=== PATIENT | male | born 1945 | race Caucasian/White ===

== ENCOUNTER 2016-11-26 15:56 | Emergency (ER) | payer OTHER, MEDICARE ==
[~2016-11-26] VITALS: Ht 175.3 cm; Wt 90.0 kg
[2016-11-26 15:57] VITALS: BP 180/90; PULSE 88; RESP 20; TEMP 99; O2SAT 97
--- NOTE | 2016-11-26 16:45 | PD ---
Physical Exam Time Seen by Provider: 16:39 Narrative 71yo male c/o CHANDLER and left elbow injury after falling from a [employer] truck today. Unknown if LOC. Negative vomiting. Positive neck pain and back pain. Takes ASA. Denies anticoagulants. VSS. Patient seen in triage. Awaiting bed placement. Data Data Last Documented VS Vital Signs Date Time Temp Pulse Resp B/P Pulse Ox O2 Delivery O2 Flow Rate FiO2 11/26/16 15:57 99.0 88 20 180/90 97 Room Air [facility] Supervised Visit with BASIM: Roxie Aranda Nov 26, 2016 16:45
[2016-11-26] MEDS ORDERED: IBUPROFEN 600 MG TAB PO ONE (18:00)
--- NOTE | 2016-11-26 18:02 | PD ---
HPI Chief Complaint: Fall Time Seen by Provider: 17:27 Travel History International Travel<30 days: No Contact w/Intl Traveler<30days: No Traveled to known affect area: No History of Present Illness HPI Patient 71-year-old male presents emergency department after a fall from 24 foot truck. Patient states he was trying to get out of the cabinet misstepped and fell landing on his left side. He thinks he impacted the tread of the tire of the truck next to his. Patient denies any chest pain or shortness of breath leading up to the event describes a purely mechanical fall. Some clear field loss of consciousness after the fall but did feel woozy. Denies history of blood thinners. His chief complaint is left elbow swelling. He is coming by his is worried about his hematoma on his posterior aspect of his head. Denies any chest pain shortness of breath abdominal pain nausea vomiting diarrhea blurred vision and focalized weakness at this time. PFSH Past Medical History Hx Anticoagulant Therapy: Yes (asa) Cardiovascular Problems: Yes (htn) Diabetes: Yes (metformin) Social History Tobacco Use: No Allergies-Medications (Allergen,Severity, Reaction): Coded Allergies: No Known Allergies (Unverified , 11/26/16) Reported Meds & Prescriptions Reported Meds & Active Scripts Active Sabattus (Hydrocodone-Acetaminophen) 5-325 mg Tab 1 Tab PO Q6H PRN Reported Metoprolol Tartrate 25 Mg Tab 25 Mg PO DAILY Lantus Solostar Pen Inj (Insulin Glargine) 300 Unit/3 Ml Pen 1 Units SQ Metformin (Metformin HCl) 500 Mg Tab 500 Mg PO BIDPC With meals Losartan-Hydrochlorothiazide 100-12.5 Mg Tab 1 Tab PO DAILY Finasteride (Finasteride (Alopecia)) 1 Mg Tab Flomax (Tamsulosin HCl) 0.4 Mg Cap 2 Mg PO HS Vitamin C (Ascorbic Acid) 500 Mg Cap 500 Mg PO Multivitamin Men (Multiple Vitamins W/ Minerals) 1 Tab Tab 1 Tab PO DAILY Aspirin 81 Mg Tabdr 81 Mg PO DAILY Review of Systems Except as stated in HPI: all other systems reviewed are Neg Physical Exam Narrative GENERAL: Well-developed well-nourished no apparent distress, appears generally than stated age. SKIN: Focused skin assessment warm/dry. HEAD: No raccoons eyes no capone signs, there is a posterior left occipital hematoma hematoma bleeding is controlled, fairly small.. Normocephalic. EYES: Pupils equal and round. No scleral icterus. No injection or drainage. ENT: No nasal bleeding or discharge. Mucous membranes pink and moist. NECK: Trachea midline. No JVD. CARDIOVASCULAR: Regular rate and rhythm. No murmur appreciated. RESPIRATORY: No accessory muscle use. Clear to auscultation. Breath sounds equal bilaterally. GASTROINTESTINAL: Abdomen soft, non-tender, nondistended. Hepatic and splenic margins not palpable. MUSCULOSKELETAL: No obvious deformities. No clubbing. No cyanosis. No edema. Left upper extremity: There is some swelling about the left elbow particularly over the olecranon process consistent with hematoma. Skin is intact. No bony tenderness. Full nontender range of motion. There is also some bruising over the left scapula and particularly odd shape bull's-eye presentation. Almost perfectly circumferential circles. Patient states she's were not here yesterday and is consistent with following on the trazodone tired next to him. Pulses motor and sensory intact distally, full nontender range of motion of the shoulder elbow wrist and fingers. No gross deformities. Right upper extremity: Atraumatic, full nontender range of motion, compartments soft, pulses motor and sensory intact distally. Lower extremities: Bilateral hips and knees ankles and feet also full nontender range of motion department are soft and no gross deformities. Pulses motor and sensory intact distally and equal bilaterally. Axial skeleton: No CT or L-spine midline tenderness or step-off. Pelvis stable. NEUROLOGICAL: Awake and alert. No obvious cranial nerve deficits. Motor grossly within normal limits. Normal speech. PSYCHIATRIC: Appropriate mood and affect; insight and judgment normal. Data Data Last Documented VS Vital Signs Date Time Temp Pulse Resp B/P Pulse Ox O2 Delivery O2 Flow Rate FiO2 11/26/16 19:18 17 11/26/16 15:57 99.0 88 180/[address] Brain W/O Iv Contrast(Rout) (11/26/16 ) Ct Cerv Spine W/O Contrast (11/26/16 ) Shoulder, Complete (>2vws) (11/26/16 ) Elbow, Complete (4 Vws) (11/26/16 ) Ibuprofen (Motrin) (11/26/16 18:00) [facility] Medical Decision Making Medical Screen Exam Complete: Yes Emergency Medical Condition: Yes Differential Diagnosis Fall, closed head injury, concussion, elbow fracture, elbow contusion, shoulder fracture, shoulder contusion. Narrative Course Patient arrived in the emergency department, he appears well younger than stated age in no obvious distress. He is a in the emergency department. CT head C-spine and shoulder x-ray and elbow x-rays are negative aside from some soft tissue swelling. Patient remained stable while in the emergency department neurologically nonfocal. He was given ibuprofen for pain. Discussed symptomatically management home and return to ED criteria. He is stable for discharge at this time. Diagnosis Primary Impression: Closed head injury Qualified Code: S09.90XA - Closed head injury, initial encounter Additional Impression: Elbow contusion Med/Other Pt SpecificInfo: Prescription(s) given Scripts Hydrocodone-Acetaminophen (Sabattus)5-325 mg Tab1 Tab PO Q6H PRN (PAIN) #10 TAB Ref 0 Prov:Franklin Wiggins MD 11/26/16 Disposition: 01 DISCHARGE HOME Condition: Stable Franklin Wiggins MD Nov 26, 2016 18:02
--- NOTE | 2016-11-26 18:06 | RADRPT ---
EXAM DATE/TIME: 11/26/2016 17:36 [facility] COMPARISON: No previous studies available for comparison. INDICATIONS : Left shoulder pain, fell MEDICAL HISTORY : None. SURGICAL HISTORY : None. ENCOUNTER: Initial ACUITY: 1 day PAIN SCORE: 4/10 LOCATION: Left Shoulder FINDINGS: No evidence of glenohumeral joint fracture or dislocation. There is moderate arthritic change in the a.c. joint with some downward spurring noted. The adjacent ribs appear intact. CONCLUSION: No acute bony findings Barry Pruitt MD on November 26, 2016 at 18:04 Board Certified Radiologist. This report was verified electronically.
--- NOTE | 2016-11-26 18:14 | RADRPT ---
EXAM DATE/TIME: 11/26/2016 17:38 [facility] COMPARISON: No previous studies available for comparison. INDICATIONS : Left elbow pain and abrasion, fell MEDICAL HISTORY : None. SURGICAL HISTORY : None. ENCOUNTER: Initial ACUITY: 1 day PAIN SCORE: 8/10 LOCATION: Left Elbow FINDINGS: There is prominent soft tissue swelling overlying the olecranon. No evidence of underlying fracture o r dislocation. No joint effusion is present. CONCLUSION: Soft tissue swelling. No acute bony injury Barry Pruitt MD on November 26, 2016 at 18:11 Board Certified Radiologist. This report was verified electronically.
--- NOTE | 2016-11-26 18:27 | RADRPT ---
EXAM DATE/TIME: 11/26/2016 18:02 [facility] COMPARISON: No previous studies available for comparison. INDICATIONS : Fall; left side head pain. RADIATION DOSE: 56.35 CTDIvol (mGy) MEDICAL HISTORY : Hypertension. Diabetes mellitus type 2. SURGICAL HISTORY : None. ENCOUNTER: Initial ACUITY: 1 day PAIN SCALE: 6/10 LOCATION: Left parietal TECHNIQUE: Multiple contiguous axial images were obtained of the head. Using automated exposure control and adj ustment of the mA and/or kV according to patient size, radiation dose was kept as low as reasonably a chievable to obtain optimal diagnostic quality images. FINDINGS: CEREBRUM: The ventricles are normal for age. No evidence of midline shift, mass lesion, hemorrhage or acute in farction. No extra-axial fluid collections are seen. POSTERIOR FOSSA: The cerebellum and brainstem are intact. The 4th ventricle is midline. The cerebellopontine angle i s unremarkable. EXTRACRANIAL: The visualized portion of the orbits is intact. SKULL: The calvaria is intact. No evidence of skull fracture. CONCLUSION: Normal examination. Barry Pruitt MD on November 26, 2016 at 18:25 Board Certified Radiologist. This report was verified electronically.
--- NOTE | 2016-11-26 18:34 | RADRPT ---
EXAM DATE/TIME: 11/26/2016 18:05 [facility] COMPARISON: No previous studies available for comparison. INDICATIONS : Fall; head and neck pain. RADIATION DOSE: 33.56 CTDIvol (mGy) MEDICAL HISTORY : Hypertension. Diabetes mellitus type 2. SURGICAL HISTORY : None. ENCOUNTER: Initial ACUITY: 1 day PAIN SCALE: 6/10 LOCATION: neck TECHNIQUE: Volumetric scanning of the cervical spine was performed. Multiplanar reconstructions in the sagittal, coronal and oblique axial planes were performed. Using automated exposure control and adjustment o f the mA and/or kV according to patient size, radiation dose was kept as low as reasonably achievable to obtain optimal diagnostic quality images. FINDINGS: The alignment is normal. There is no evidence of cervical spine fracture. No bony canal or foraminal stenosis is identified. There is no evidence of paraspinal hematoma. CONCLUSION: No acute bony injury in the cervical spine. Barry Pruitt MD on November 26, 2016 at 18:29 Board Certified Radiologist. This report was verified electronically.
[2016-11-26] MEDS ORDERED: TAMS5CAP PO (18:49)
[2016-11-26] MEDS ORDERED: ASCO500C PO (18:49)
[2016-11-26] MEDS ORDERED: ASPI1TAB69 PO (18:49)
[2016-11-26] MEDS ORDERED: FINA1TAB16 (18:49)
[2016-11-26] MEDS ORDERED: MULT1TAB85 PO (18:49)
[2016-11-26] MEDS ORDERED: METO25TA3 PO (18:50)
[2016-11-26] MEDS ORDERED: LANTINJ SQ (18:50)
[2016-11-26] MEDS ORDERED: LOSA100T3 PO (18:50)
[2016-11-26] MEDS ORDERED: METF500T PO (18:50)
[2016-11-26] MEDS ORDERED: NORC5TAB PO (18:54)
[2016-11-26 19:18] VITALS: RESP 17
== END 2016-11-26 19:11 | disposition home or self-care (01) ==
LOC: NEPD 15:56
DX: S09.90XA Unspecified injury of head, initial encounter (principal); S50.02XA Contusion of left elbow, initial encounter; I10 Essential (primary) hypertension; E11.9 Type 2 diabetes mellitus without complications; Z79.82 Long term (current) use of aspirin; Z79.84 Long term (current) use of oral hypoglycemic drugs; W17.89XA Other fall from one level to another, initial encounter
CPT/HCPCS: 70450; 72125; 73030; 73080